=== PATIENT | male | born 1995 | race Caucasian/White ===

== ENCOUNTER 2024-03-08 11:36 | Emergency (ER) | payer OTHER, SELFPAY ==
[2024-03-08 11:45] VITALS: BP 159/76; PULSE 109; RESP 16; TEMP 36.1; O2SAT 99
--- NOTE | 2024-03-08 12:47 | ED.NAVMDI ---
HPI - Nausea/Vomiting/Diarrhea General Chief complaint: Nausea/Vomiting/Diarrhea Stated complaint: Diarrhea/Vomiting Source: patient and RN notes reviewed Mode of arrival: ambulatory Limitations: no limitations History of Present Illness HPI Narrative: 28-year-old male presented complaint of vomiting and diarrhea. Onset last night. Endorses 1 episode of diarrhea today and no emesis. He has been able to tolerate fluids.He missed work today and needs note Related Data Home Medications ?Medication ?Instructions ?Recorded ?Confirmed ?Last Taken ?Type No Home Medications 03/08/24 03/08/24 Unknown History Allergies Allergy/AdvReac Type Severity Reaction Status Date / Time No Known Allergies Allergy Mild Verified 12/16/15 12:26 Review of Systems Review of Systems: CONSTITUTIONAL: Denies body aches, fever, chills ENT: Denies rhinorrhea, congestion CARDIOVASCULAR: Denies chest pain, palpitations, or edema. RESPIRATORY: Denies cough or dyspnea. GASTROINTESTINAL: Endorses nausea, vomiting, diarrhea. Denies abdominal pain, hematochezia, melena, hematemesis GENITOURINARY: Denies dysuria, hematuria, or CVA tenderness. MUSCULOSKELETAL: Denies back pain, joint pain, or myalgia. NEUROLOGIC: Denies headache, numbness, tingling, or weakness. All systems reviewed & are unremarkable except as noted in HPI and below PMFSH Comments At time of signature, I have reviewed and agree with nursing past medical, surgical, social and family history unless otherwise noted. Please see nursing chart for further information. There is no relevant family history pertinent to the presenting complaint Exam Narrative: GENERAL: Well-appearing, and in no acute distress. EYES: EOMI. Conjunctivae normal. ENT: Mucous membranes pink and moist. CHEST: No respiratory distress. Clear to auscultation. HEART: Regular rate and rhythm. No murmur appreciated. Normal peripheral pulses. ABDOMEN: abd soft, nondistended, normal active bowel sounds. Nontender abdomen, No guarding, rebound tenderness, asymmetry EXTREMITIES: Normal range of motion. SKIN: Warm, dry, no rash. Capillary refill normal. Normal skin turgor. NEURO: No focal deficits. Alert and oriented x3. PSYCH: Normal affect. Course Course Emergency Course: Patient is aware of diagnosis, understands and agrees to treatment plan. Anticipatory guidance given. Patient agrees to follow-up as directed and is aware of reasons to seek care at the emergency department. Portions of this record may have been created with voice recognition software Level of Care: Express Care Visit Vital Signs Vital signs: Vital Signs Temperature 97 F L 03/08/24 11:45 Pulse Rate 109 H 03/08/24 11:45 Respiratory Rate 16 03/08/24 11:45 Blood Pressure 159/76 H 03/08/24 11:45 Pulse Oximetry 99 03/08/24 11:45 Oxygen Delivery Room Air 03/08/24 11:45 Temperature 97 F L 03/08/24 11:45 Pulse Rate 109 H 03/08/24 11:45 Respiratory Rate 16 03/08/24 11:45 Blood Pressure 159/76 H 03/08/24 11:45 Pulse Oximetry 99 03/08/24 11:45 Oxygen Delivery Room Air 03/08/24 11:45 MDM - Nausea/Vomiting/Diarrhea MDM Narrative Medical decision making narrative: Discussed physical exam findings. Advised supportive measures and signs/symptoms to go to the ER. Pt is appropriate for outpt treatment and f/u. Differential Diagnosis Differential diagnosis: Likely traveler's diarrhea, food poisoning, gastroenteritis, drug-induced nausea and vomiting and dehydration Discharge Plan Discharge Clinical Impression: Nausea vomiting and diarrhea Patient Disposition: Home, Self-Care Condition: Stable Instructions: Acute Diarrhea (ED) Additional Instructions: Stay hydrated. Take small sips of fluid containing electrolytes frequently. Clear liquids (broth, jello, tea, sprite, pedialyte) Bailey foods (bananas, rice, applesauce, toast, crackers) Avoid fatty, greasy, fried or spicy foods. Limit dairy until symptoms are improved. [id number] Imodium according to package directions for severe diarrhea Recommend probiotic such as align or lactobacillus to help with symptoms. You should go to the hospital if you experience persistent nausea and vomiting that does not resolve and does not allow you to tolerate any food or fluids, fevers, increasing abdominal pain, persistent diarrhea, or for any other concerns. Follow up with primary care provider in 3 days. Patient Language: Turkish Prescriptions: No Action No Home Medications Follow-up/Referrals: PHYSICIAN,GRAIN OILSEED OR PASTURE GROWER [Primary Care Provider] - Stand Alone Forms: Work/School Release IP Time of Disposition: 12:49
== END 2024-03-08 13:00 | disposition home or self-care (01) ==
PROVIDERS: Emergency Provider Nurse Practitioner Family
DX: R11.2 Nausea with vomiting, unspecified (principal); R19.7 Diarrhea, unspecified
CPT/HCPCS: 99202; G0463

== ENCOUNTER 2024-06-21 10:36 | Emergency (ER) | payer OTHER, SELFPAY ==
--- NOTE | ~2024-06-21 | XR_ITS ---
XR finger 4th LT min 2V 06/21/2024 10:55 Indication: Trauma to the left fourth finger Procedure: 4 views left fourth finger Comparison: No prior studies for comparison. Findings: There is a comminuted displaced tuft fracture left fourth distal phalanx. Mild soft tissue swelling. Impression: 1: Comminuted displaced tuft fracture left fourth distal phalanx. Reviewed, dictated and finalized at location A. Impression: 1: Comminuted displaced tuft fracture left fourth distal phalanx.
[2024-06-21 10:40] VITALS: BP 136/90; PULSE 97; RESP 16; TEMP 36.6; O2SAT 98
--- NOTE | 2024-06-21 10:57 | ED.WOUNDLAC ---
HPI - Wound/Laceration General Chief Complaint: Wound/Laceration Stated Complaint: Finger Injury Time Seen by Provider: 06/21/24 10:58 Source: patient, RN notes reviewed and old records reviewed Mode of arrival: ambulatory Limitations: no limitations History of Present Illness HPI narrative: 29-year-old male presents to the [facility] with a crush injury to the left 4th distal finger. Unsure of exact mechanism of injury. Related Data Home Medications ?Medication ?Instructions ?Recorded ?Confirmed ?Last Taken ?Type No Home Medications 03/08/24 03/08/24 Unknown History Allergies Allergy/AdvReac Type Severity Reaction Status Date / Time No Known Allergies Allergy Mild Verified 12/16/15 12:26 Review of Systems Review of Systems: All systems reviewed & are unremarkable except as noted in HPI and below Constitutional: Constitutional: Reports no additional constitutional complaints ENT: Reports system reviewed and no additional complaints, except as documented Cardiovascular: Cardiovascular: Reports no additional cardiovascular complaints, Denies chest pain and Denies dyspnea Respiratory: Respiratory: Reports no additional respiratory complaints, Denies chest congestion, Denies cough and Denies dyspnea Musculoskeletal: Musculoskeletal: Reports as per HPI Integumentary/Breasts: Skin/Breast: Reports as per HPI PMFSH Comments At the time of my signature, I reviewed and agree with the nursing past medical, surgical, social, and family history. There is no relevant family history pertinent to the patient complaint. Exam Const: General: cooperative, healthy appearing, comfortable, no acute distress, well developed, alert and well nourished Nutritional Appearance: well nourished Orientation/consciousness: patient oriented x3 Limitations: no limitations HENMT: Head: normal to inspection Eyes: General: appearance normal, both eyes and all related structures Alignment and Position: alignment normal Neck: Neck: normal visual inspection, full ROM, no lymphadenopathy and no meningeal signs Chest: Chest palpation & inspection: normal inspection of the chest Resp: Effort & Inspection: normal respiratory effort and able to speak in complete sentences Cardio: Rate: regular rate Skin: General skin exam: normal color and no rashes or lesions noted Wounds: wounds noted (Laceration, nail removed left 4th finger) Other: Concern for partial amputation of the distal finger nail bed involvement. Neuro: General: patient oriented x3, gait normal, moves all extremities and no meningeal signs Cognition (Neuro): normal cognition Speech: normal speech Gait exam (Neuro): Normal gait present Extrem: General: normal to inspection, full ROM, capillary refill normal and normal gait Right upper extremity: Extremity exam: right hand tenderness of the 4th digit at the distal phalanx, swelling of the 4th digit at the distal phalanx and laceration (Left 4th finger distal) Psych: Appearance: grossly normal and well kempt Mental Status: mental status grossly normal Speech and movement: Normal speech and movement present and Clear speech present Affect: normal affect Attitude: cooperative Course Course Level of Care: Express Care Visit Vital Signs Vital signs: Vital Signs Temperature 97.8 F 06/21/24 10:40 Pulse Rate 97 06/21/24 10:40 Respiratory Rate 16 06/21/24 10:40 Blood Pressure 136/90 06/21/24 10:40 Pulse Oximetry 98 06/21/24 10:40 Oxygen Delivery Room Air 06/21/24 10:40 Temperature 97.8 F 06/21/24 10:40 Pulse Rate 97 06/21/24 10:40 Respiratory Rate 16 06/21/24 10:40 Blood Pressure 136/90 06/21/24 10:40 Pulse Oximetry 98 06/21/24 10:40 Oxygen Delivery Room Air 06/21/24 10:40 Reviewed Transfer Transfered to: [facility] (Per patient request) Transportation: Other (POV per patient request) Transfer rationale: Concern for open fracture, partial amputation of the finger sending for higher level care Accepting physician: Spoke with Nela LAUGHLIN, [facility]. MDM - Wound/Laceration MDM Narrative Medical decision making narrative: Patient with concerns of a partial amputation, open fracture to the 4th finger hand. Sending for higher level of care and further evaluation Transfer instructions reviewed with patient go directly to the ER. Do not eat or drink until cleared by your provider All questions have been answered, and the patient deny any further questions. Some parts of this dictation were generated by voice recognition software and may contain typographical and/or grammatical inaccuracies. Differential Diagnosis Differential diagnosis: Likely laceration, abscess, abrasion and avulsion of skin Imaging Data Radiologist's impression: XR finger 4th LT min 2V 06/21/2024 10:55 Indication: Trauma to the left fourth finger Procedure: 4 views left fourth finger Comparison: No prior studies for comparison. Findings: There is a comminuted displaced tuft fracture left fourth distal phalanx. Mild soft tissue swelling. Impression: 1: Comminuted displaced tuft fracture left fourth distal phalanx. Critical Care Time Critical Care Time Critical Care Time: No Discharge Plan Discharge Clinical Impression: Crush injury to finger Qualifiers: Encounter type: initial encounter Qualified Code(s): S67.10XA - Crushing injury of unspecified finger(s), initial encounter Patient Disposition: Acute Care Hospital Condition: Stable Patient Language: Malay Prescriptions: No Action No Home Medications Follow-up/Referrals: PHYSICIAN,DATA CENTER MANAGER [Primary Care Provider] -
== END 2024-06-21 11:36 | disposition short-term general hospital (02) ==
PROVIDERS: Emergency Provider Nurse Practitioner
DX: S67.195A Crushing injury of left ring finger, initial encounter (principal); X58.XXXA Exposure to other specified factors, initial encounter; S62.635A Displaced fracture of distal phalanx of left ring finger, initial encounter for closed fracture
CPT/HCPCS: 73140; 99213; G0463

== ENCOUNTER 2024-08-26 10:49 | Emergency (ER) | payer OTHER, SELFPAY ==
[2024-08-26 10:56] VITALS: BP 146/85; PULSE 87; RESP 20; TEMP 36.9; O2SAT 100
--- NOTE | 2024-08-26 11:09 | ED_ITS ---
HPI - Nausea/Vomiting/Diarrhea General Chief complaint: Nausea/Vomiting/Diarrhea Stated complaint: Diarrhea,Vomiting / Work Note Time Seen by Provider: 08/26/24 11:10 Source: patient Mode of arrival: ambulatory Limitations: no limitations History of Present Illness HPI Narrative: 29-year-old male presents with complaint nausea, vomiting and diarrhea for 2 days. No abdominal pain. Afebrile. States symptoms are improving. Here for a work note. All systems reviewed and negative except as noted. Related Data Home Medications ?Medication ?Instructions ?Recorded ?Confirmed ?Last Taken ?Type No Home Medications 03/08/24 03/08/24 Unknown History Allergies Allergy/AdvReac Type Severity Reaction Status Date / Time No Known Allergies Allergy Mild Verified 08/26/24 11:02 Review of Systems Review of Systems: CONSTITUTIONAL: Denies fever, chills, or sweats. EYES: Denies visual changes, redness, or discharge. ENT: Denies rhinorrhea, congestion, sore throat, or otalgia. CARDIOVASCULAR: Denies chest pain, palpitations, or edema. RESPIRATORY: Denies cough or dyspnea. GASTROINTESTINAL: Denies abdominal pain . Reports nausea, vomiting, or diarrhea. GENITOURINARY: Denies dysuria or hematuria. SKIN: Denies rash or itching. MUSCULOSKELETAL: Denies back pain, joint pain, or myalgia. NEUROLOGIC: Denies headache, numbness, or weakness. PSYCHIATRIC: Denies anxiety or depression. All other systems reviewed are negative, except as documented in HPI. PMFSH Comments At time of signature, agree with nursing past medical, surgical, social and family history. There is no relevant family history pertinent to the presenting complaint. Exam Narrative: GENERAL: This is a well-nourished, well-developed patient, in no apparent distress. HEAD: normocephalic, atraumatic. EYES: PERRL. Sclera clear/white. Vision is grossly intact. EARS: External ears normal NOSE: External nose normal NECK: Neck supple, non-tender without lymphadenopathy, masses or thyromegaly. CARDIOVASCULAR: Regular rate and rhythm without murmurs, gallops, or rubs. RESPIRATORY: Clear to auscultation. Breath sounds equal bilaterally. No wheezes, rales, or rhonchi. GASTROINTESTINAL: Abdomen soft, non-tender, nondistended. Bowel sounds are active. No hepato-splenomegaly, or palpable masses. No guarding. SKIN: warm, Dry, intact with no suspicious lesions or rash, good texture and turgor. NEURO: awake, alert, and oriented to person, place and time. There were no obvious focal neurologic abnormalities. EXTREMITIES: No joint tenderness, effusion, or edema noted. Course Course Level of Care: Express Care Visit Vital Signs Vital signs: Vital Signs Temperature 36.9 C 08/26/24 10:56 Pulse Rate 87 08/26/24 10:56 Respiratory Rate 20 08/26/24 10:56 Blood Pressure 146/85 H 08/26/24 10:56 Pulse Oximetry 100 08/26/24 10:56 Oxygen Delivery Room Air 08/26/24 10:56 Temperature 36.9 C 08/26/24 10:56 Pulse Rate 87 08/26/24 10:56 Respiratory Rate 20 08/26/24 10:56 Blood Pressure 146/85 H 08/26/24 10:56 Pulse Oximetry 100 08/26/24 10:56 Oxygen Delivery Room Air 08/26/24 10:56 reviewed MDM - Nausea/Vomiting/Diarrhea MDM Narrative Medical decision making narrative: patient reports symptoms are improving. Ate some toast prior to arrival unable to keep down water. Here for work no. No abdominal tenderness on exam, bowel sounds normal. Well-appearing, nontoxic. Differential Diagnosis Differential diagnosis: Likely gastroenteritis Discharge Plan Discharge Clinical Impression: Nausea vomiting and diarrhea Patient Disposition: Home Condition: Stable Instructions: Acute Nausea and Vomiting (DC) Additional Instructions: Drink plenty of water and rest. Take Tylenol or ibuprofen as needed for pain. Follow-up with your doctor if symptoms are not improving. Patient Language: Italian Prescriptions: No Action No Home Medications Follow-up/Referrals: PHYSICIAN,SOLAR PROJECT ENGINEER [Primary Care Provider] - Stand Alone Forms: Work/School Release IP Time of Disposition: 11:16
--- OUTSIDE RECORDS SUMMARY | 2024-08-26 11:53 | XMS_ITS | Referral Summary ---
Author Organization [facility] al Address [address] [place] [address] Care Team Providers Care Conveyor Tender Name Role Phone No, Physician Primary Care Provider [phone] Encounters Date Type Department Care Team Description 07/25/2024 3:45 PM CDT Office Visit [facility] Surgery [facility] 6th [place] [address] Marina Smith NP Open nondisplaced fracture of distal phalanx of left ring finger with routine healing, subsequent encounter (Primary Dx) 07/03/2024 Plan of Care Documentation [facility] Occupational Therapy [address] [place] [address] 6th [place] [address] 07/03/2024 3:05 PM CDT Therapy [facility] Occupational Therapy [address] [place] [address] 6th [place] [address] Emiliano Baker OT Open nondisplaced fracture of distal phalanx of left ring finger with routine healing, subsequent encounter (Primary Dx) 07/03/2024 2:00 PM CDT Office Visit [facility] Surgery [address] [place] [address] 6th [place] [address] Marina Smith NP Open nondisplaced fracture of distal phalanx of left ring finger with routine healing, subsequent encounter 07/01/2024 Telephone [facility] Surgery [address] [facility] 6th [place] [address] Miya Turner Scheduling Appointments 06/21/2024 1:28 PM CDT - 06/21/2024 5:50 PM CDT Emergency [facility] Emergency Department [address] [place] [address] Anton Cochran MD Poirier, Robert F. Jr., MD Open nondisplaced fracture of distal phalanx of left ring finger, initial encounter (Primary Dx); Injury of nail bed of finger of left hand, initial encounter Discharge Disposition: Discharge to home or self care from Last 3 Months Allergies No known active allergies Medications ibuprofen (ADVIL,MOTRIN) 600 mg tablet Take 1 tablet (600 mg total) by mouth 4 (four) times a day as needed for pain Take with food. 30 tablet 1 06/21/2024 Active Active Problems No known active problems Immunizations Immunization Administration Dates Next Due Tdap 06/21/2024 Social History Tobacco Use Types Packs/Day Years Used Date Smoking Tobacco: Never Assessed Personal Safety Answer Date Recorded Have you ever been in or are you currently in a harmful physical or emotional relationship or is someone making you feel afraid or unsafe? Denies 06/21/2024 Sex and Gender Information Value Date Recorded Sex Assigned at Not on file Legal Sex Male 8:17 AM UPSETTER SETTER UP Gender Identity Not on file Sexual Orientation Not on file Last Filed Vital Signs Vital Sign Reading Time Taken Comments Blood Pressure 158/80 06/21/2024 5:50 PM CDT Pulse 75 06/21/2024 5:50 PM CDT Temperature - - Respiratory Rate 16 06/21/2024 5:50 PM CDT Oxygen Saturation 98% 06/21/2024 5:50 PM CDT Inhaled Oxygen Concentration - - Weight 97.5 kg (215 lb) 06/21/2024 1:14 PM CDT Height 177.8 cm (5' 10) 06/21/2024 1:14 PM CDT Body Mass Index 30.85 06/21/2024 1:14 PM CDT Plan of Treatment Not on file Procedures Procedure Name Priority Date/Time Associated Diagnosis Comments ED ORTHOPEDIC INJURY TREATMENT - UPPER EXTREMITY Routine 06/26/2024 5:00 PM CDT XR FINGER LEFT 2 OR MORE VIEWS ED 06/21/2024 1:29 PM CDT from Last 3 Months Results * Orthopedic Injury Reduction/Treatment - Upper Extremity (06/26/2024 5:00 PM CDT) Narrative Sarabjit Florence Jr., MD - 06/26/2024 5:00 PM CDT Sarabjit Florence Jr., MD 06/26/2024 5:23 PM Orthopedic Injury Reduction/Treatment - Upper Extremity Date/Time: 06/26/2024 5:00 PM Performed by: Sarabjit Florence Jr., MD Authorized by: Sarabjit Florence Jr., MD RN Notified of Procedure: yes Informed consent: Risks, benefits, alternatives discussed Patient's stated name/ matches armband: Yes Allergies confirmed: yes Imaging: Pertinent imaging reviewed, correctly oriented and match to patient identifiers Supplies, devices and special equipment are available: yes Site/side marked: yes Immediately prior to the procedure a time out was called: a verbal verification by the procedure participants confirmed correct patient identity, correct site/side marked and visible (if applicable); agreement on procedure to be done; and correct patient positioning Location: Finger Finger location: L ring finger Pre-procedure imaging: X-ray Imaging findings: fracture present Distal perfusion: normal Sedation used: no Anesthesia method: Nerve block Block location: Left 4th finger Block needle gauge: 27 G Block anesthetic: Lidocaine 1% WITH epi Block technique: Digital block Block injection procedure: Anatomic landmarks identified, negative aspiration for blood, incremental injection, anatomic landmarks palpated and introduced needle Block outcome: Anesthesia achieved Manipulation performed: no Immobilization: Splint Splint type: Static finger Supplies used: Aluminum splint Neurological function: normal Distal perfusion: normal Range of motion: unchanged Patient tolerance of procedure: Tolerated well, no immediate complications All guidewires, needles, sponges or other items are accounted for: yes us Sarabjit Florence Jr., MD IN CL[facility] Final Result * XR Finger Left 2 or More Views (06/21/2024 1:29 PM CDT) Anatomical Region Laterality Modality Upper Extremities, Hand, Fingers Left Computed Radiography 06/21/2024 1:42 PM CDT Impressions 06/21/2024 1:42 PM CDT There is a comminuted left ring finger tuft fracture of the distal phalanx with associated soft tissue swelling. The remainder of the left hand is normal. Electronically signed by: Tristian Haji M.D. Narrative 06/21/2024 1:42 PM CDT EXAMINATION: XR FINGER LEFT 2 OR MORE VIEWS HISTORY: Trauma COMPARISON: None. Procedure Note Tristian Haji MD - 06/21/2024 EXAMINATION: XR FINGER LEFT 2 OR MORE VIEWS HISTORY: Trauma COMPARISON: None. IMPRESSION: There is a comminuted left ring finger tuft fracture of the distal phalanx with associated soft tissue swelling. The remainder of the left hand is normal. Electronically signed by: Tristian Haji M.D. Anton Cochran MD IMG XR PROCEDURES Final Result from Last 3 Months Insurance [facility] Care Teams Conveyor Tender Relationship Specialty Start Date End Date No, Physician PCP - General 06/21/24
--- OUTSIDE RECORDS SUMMARY | 2024-08-26 11:53 | XMS_ITS | Clinical Summary ---
Author Organization [facility] Address [address] [place] [address] Care Team Providers Care Walnut Dehydrator Operator Name Role Phone No, Physician Primary Care Provider [phone] Allergies No known active allergies Medications ibuprofen (ADVIL,MOTRIN) 600 mg tablet Take 1 tablet (600 mg total) by mouth 4 (four) times a day as needed for pain Take with food. 30 tablet 1 06/21/2024 Active Active Problems No known active problems Encounters Date Type Department Care Team Description 07/25/2024 3:45 PM CDT Office Visit [facility] Surgery [address] [place] [address] 6[address] [place] [address] Marina Smith NP Open nondisplaced fracture of distal phalanx of left ring finger with routine healing, subsequent encounter (Primary Dx) 07/03/2024 3:05 PM CDT Therapy [facility] Occupational Therapy [address] [place] [address] 6th [place] [address] Emiliano Baker OT Open nondisplaced fracture of distal phalanx of left ring finger with routine healing, subsequent encounter (Primary Dx) 07/03/2024 2:00 PM CDT Office Visit [facility] Surgery [address] [facility] [address] [facility] 6th [place] [address] Marina Smtih NP Open nondisplaced fracture of distal phalanx of left ring finger with routine healing, subsequent encounter 07/03/2024 Plan of Care Documentation [facility] Occupational Therapy [address] [facility] 6th [place] [address] [place] [address] 07/01/2024 Telephone [facility] Surgery [address] [facility] 6th [place] [address] [place] [address] Miya Turner Scheduling Appointments 06/21/2024 1:28 PM CDT - 06/21/2024 5:50 PM CDT Emergency [facility] Emergency Department [address] [facility] [place] [address] Anton Cochran MD Poirier, Robert F. Jr., MD Open nondisplaced fracture of distal phalanx of left ring finger, initial encounter (Primary Dx); Injury of nail bed of finger of left hand, initial encounter Discharge Disposition: Discharge to home or self care from Last 3 Months Immunizations Immunization Administration Dates Next Due Tdap [...] on file Legal Sex Male 8:17 AM CLEARING HAND Gender Identity Not on file Sexual Orientation Not on file Obstetrics History Last Filed Vital Signs Vital Sign Reading [...] 06/21/2024 1:14 PM CDT Plan of Treatment Health Maintenance Due Date Last Done Comments Depression Screening 1995 Hepatitis C Screening 1995 Varicella Vaccines (1 of 2 - 13+ 2-dose series) 2008 Hepatitis B Screening 2013 Regular Well Visit/Exam 18-64 2013 Influenza Vaccine (Season Ended) 2024 DTaP/Tdap/Td Vaccine (2 - Td or Tdap) 06/21/2034 06/21/2024 HPV Vaccines Aged Out No longer eligi ble based on patient's age to complete this topic Pneumococcal vaccine <65 Aged Out No longer eligible based on patient's age to complete this topic Procedures Procedure Name Priority Date/Time Associated Diagnosis [...] or other items are accounted for: yes Sarabjit Florence Jr., MD IN CLINIC/BEDSIDE SANDRA [...] Final Result from Last 3 Months Insurance [facility] CHOICE PLUS [facility] CHOICE PLUS [place] [id number] Care Teams Walnut Dehydrator Operator Relationship Specialty Start Date End Date No, Physician PCP - General 06/21/24
== END 2024-08-26 11:19 | disposition home or self-care (01) ==
PROVIDERS: Emergency Provider Nurse Practitioner Family
DX: R11.2 Nausea with vomiting, unspecified (principal); R19.7 Diarrhea, unspecified
CPT/HCPCS: 99211; G0463

== ENCOUNTER 2024-11-26 09:05 | Emergency (ER) | payer OTHER, SELFPAY ==
[2024-11-26 09:18] VITALS: BP 153/86; PULSE 93; RESP 14; TEMP 36.6; O2SAT 100
--- NOTE | 2024-11-26 10:06 | ED.GENADULT ---
HPI - General Adult General Chief complaint: Nausea/Vomiting/Diarrhea Stated complaint: headache/nausea/diarrhea Time Seen by Provider: 11/26/24 09:50 Source: patient, RN notes reviewed and old records reviewed Mode of arrival: ambulatory Limitations: no limitations History of Present Illness HPI narrative: 29 year old male who presents to [facility] care with complaints of having headache which started 2 days ago and has had episodes of diarrhea since yesterday. Patient reports that he has had 2 episodes of diarrhea this morning. patient reports that he is feeling better but didn't think he could go to work today around loud noises. 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 Patient reports no acute abdominal pain states minimal nausea, no vomiting, he has taken Tylenol and also Immodium for his symptoms, denies any fevers chills or sweats. MD complaint: headache, diarrhea Onset (ago): day(s) (3) Severity scale (1-10): 4 Quality: aching Treatments prior to arrival: other (Tylenol, Immodium) Related Data Home Medications ?Medication ?Instructions ?Recorded ?Confirmed ?Last Taken ?Type No Home Medications 03/08/24 11/26/24 Unknown History Allergies Allergy/AdvReac Type Severity Reaction Status Date / Time No Known Allergies Allergy Mild Verified 11/26/24 10:04 Review of Systems Review of Systems: CONSTITUTIONAL: Denies fever, chills, or sweats. EYES: Denies visual changes, redness, or discharge. ENT: Denies rhinorrhea, congestion, sore throat, or otalgia. CARDIOVASCULAR: Denies chest pain, palpitations, or edema. RESPIRATORY: Denies cough or dyspnea. GASTROINTESTINAL: Denies any acute abdominal pain,minimal nausea,no vomiting, positive for diarrhea. GENITOURINARY: Denies dysuria or hematuria. SKIN: Denies rash or itching. MUSCULOSKELETAL: Denies back pain, joint pain, or myalgia. NEUROLOGIC: Reports temporal headache,no numbness, or weakness. PSYCHIATRIC: Denies anxiety or depression. All systems reviewed & are unremarkable except as noted in HPI and below PMFSH Social History Social History Smoking status: Current every day smoker Tobacco type: cigarettes Alcohol intake: current Alcohol use details: social last alcohol on Monday Substance use type: does not use Living arrangements: with family Gender identity (if verbalized by the patient): Male Comments At time of signature, agree with nursing past medical, surgical, social and family history. There is no relevant family history pertinent to the presenting complaint Exam Narrative: GENERAL: Well-appearing, well-nourished, and in no acute distress. HEAD: Normocephalic, atraumatic. EYES: PERRLA and EOMI.no nystagmus ENT: Nares clear, no rhinorrhea or epistaxis. Mucous membranes moist. NECK: Supple.no lymphadenopathy CHEST: Clear to auscultation. No respiratory distress.SAO2 100% on room air HEART: Regular rate and rhythm. No murmur heard. Normal peripheral pulses. ABDOMEN: Soft, nontender to palpation, No McBurney point tenderness, nondistended, normal active bowel sounds.reports episodes of diarrhea EXTREMITIES: Normal range of motion. No edema. SKIN: Warm, dry, no rash. NEURO: No focal deficits. Alert and oriented x3. reports temporal headache Course Course Emergency Course: Patient is aware of diagnosis, understands and agrees to treatment plan.? Anticipatory guidance given.? Patient agrees to follow-up as directed and is aware of reasons to seek care at the emergency department. Portions of this record may have been created with voice recognition software Level of Care: Express Care Visit Vital Signs Vital signs: Vital Signs Temperature 36.6 C 11/26/24 09:18 Pulse Rate 93 11/26/24 09:18 Respiratory Rate 14 11/26/24 09:18 Blood Pressure 153/86 H 11/26/24 09:18 Pulse Oximetry 100 11/26/24 09:18 Oxygen Delivery Room Air 11/26/24 09:18 Temperature 36.6 C 11/26/24 09:18 Pulse Rate 93 11/26/24 09:18 Respiratory Rate 14 11/26/24 09:18 Blood Pressure 153/86 H 11/26/24 09:18 Pulse Oximetry 100 11/26/24 09:18 Oxygen Delivery Room Air 11/26/24 09:18 Reviewed Medical Decision Making MDM Narrative Medical decision making narrative: Exam findings and imaging show no acute concerns or changes; patient is non-toxic appearing and is in no distress.? Patient is appropriate for outpatient treatment and follow-up Differential Diagnosis Differential Diagnosis: headache pain, diarrhea, gastritis, gastroenteritis, viral syndrome Medical Records Medical records reviewed: Yes I reviewed the external patient's medical records. Vital Signs Vital Signs: Vital Signs Temperature 36.6 C 11/26/24 09:18 Pulse Rate 93 11/26/24 09:18 Respiratory Rate 14 11/26/24 09:18 Blood Pressure 153/86 H 11/26/24 09:18 Pulse Oximetry 100 11/26/24 09:18 Oxygen Delivery Room Air 11/26/24 09:18 Temperature 36.6 C 11/26/24 09:18 Pulse Rate 93 11/26/24 09:18 Respiratory Rate 14 11/26/24 09:18 Blood Pressure 153/86 H 11/26/24 09:18 Pulse Oximetry 100 11/26/24 09:18 Oxygen Delivery Room Air 11/26/24 09:18 reviewed Critical Care Time Critical Care Time Critical Care Time: No Discharge Plan Discharge Clinical Impression: Headache Qualifiers: Headache type: unspecified Headache chronicity pattern: acute headache Intractability: not intractable Qualified Code(s): R51.9 - Headache, unspecified Diarrhea Qualifiers: Diarrhea type: unspecified type Qualified Code(s): R19.7 - Diarrhea, unspecified Patient Disposition: Home Condition: Stable Instructions: Analgesic/Decongestant (By mouth), Acute Headache (ED), Acute Diarrhea (ED) Additional Instructions: Clear liquids for the next 8-10 hours, then advance to a bland diet as tolerated A bland diet can consist of--BRAT diet which is bananas, rice, applesauce, and toast Avoid fried, greasy, fatty, fried foods Avoid caffeine, nicotine, and alcohol Return to your regular diet in the next 3-4 days Sometimes ibuprofen/Aleve can cause increased stomach upset [id number] Imodium if develop diarrhea Follow-up with her PCP if continued problems or uncontrolled pain Take Tylenol for your headache and also antihistamine such as Zyrtec or Claritin If your symptoms persist, change or worsen significantly before you can contact your personal physician then please, without delay, go to the emergency department for further evaluation. Follow-up with PCP in 7-10 days or sooner if needed Follow up with PCP soon in regards to your blood pressure which is elevated above threshold for referral. Blood pressure above 120/80 may indicate pre-hypertension. 153/86 Patient Language: Mosotho Prescriptions: No Action No Home Medications Follow-up/Referrals: PHYSICIAN,DIRECTOR CORPORATE COMMUNICATIONS [Primary Care Provider, Internal Medicine] Stand Alone Forms: Work/School Release IP Time of Disposition: 10:17 Quality [place] Coma Scale Eyes: Open Verbal: Oriented and Alert Motor: Follows Commands Denia Coma Total Score: 15
--- OUTSIDE RECORDS SUMMARY | 2024-11-26 10:14 | XMS_ITS | Clinical Summary ---
Author Organization 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
== END 2024-11-26 10:20 | disposition home or self-care (01) ==
PROVIDERS: Emergency Provider Registered Nurse
DX: R51.9 Headache, unspecified (principal); R19.7 Diarrhea, unspecified; F17.210 Nicotine dependence, cigarettes, uncomplicated
CPT/HCPCS: 99211; G0463

== ENCOUNTER 2025-01-03 09:10 | Emergency (ER) | payer OTHER, SELFPAY ==
--- OUTSIDE RECORDS SUMMARY | 2025-01-03 09:19 | XMS_ITS | Clinical Summary ---
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
[2025-01-03 09:20] VITALS: BP 145/73; PULSE 95; RESP 16; TEMP 36.5; O2SAT 99
--- NOTE | 2025-01-03 09:30 | ED.NAVMDI ---
HPI - Nausea/Vomiting/Diarrhea General Chief complaint: Nausea/Vomiting/Diarrhea Stated complaint: Vomiting Time Seen by Provider: 01/03/25 09:30 Source: patient Mode of arrival: ambulatory Limitations: no limitations History of Present Illness HPI Narrative: 29-year-old male presents with complaint of nausea and vomiting starting yesterday morning. Ate breakfast and went into work. Started vomiting around 9:00 a.m.. A left work early. Continues to feel nauseated this morning but no Vomiting. Is able to keep down water. Needs work note. No abdominal pain. All systems reviewed and negative except as noted above. Related Data Allergies Allergy/AdvReac Type Severity Reaction Status Date / Time No Known Allergies Allergy Mild Verified 01/03/25 09:29 [facility] Social History Social History Smoking status: Current every day smoker Tobacco type: cigarettes Alcohol intake: current Alcohol use details: social last alcohol on Monday Substance use type: does not use Living arrangements: with family Gender identity (if verbalized by the patient): Male Comments At time of signature, agree with nursing past medical, surgical, social and family history. There is no relevant family history pertinent to the presenting complaint. Exam Narrative: GENERAL: This is a well-nourished, well-developed patient, in no apparent distress. HEAD: normocephalic, atraumatic. EYES: PERRL. Sclera clear/white. Vision is grossly intact. EARS: External ears normal, auditory canals clear and without drainage, TMs normal without perforation. Hearing grossly intact. NOSE: External nose normal with no obvious nasal discharge, nares without redness, no rhinorrhea. THROAT: Mucous membranes moist, posterior pharynx clear. NECK: Neck supple, non-tender without lymphadenopathy, masses or thyromegaly. CARDIOVASCULAR: Regular rate and rhythm without murmurs, gallops, or rubs. RESPIRATORY: Clear to auscultation. Breath sounds equal bilaterally. No wheezes, rales, or rhonchi. GASTROINTESTINAL: Abdomen soft, non-tender, nondistended. Bowel sounds are active. No hepato-splenomegaly, or palpable masses. No guarding. SKIN: warm, Dry, intact with no suspicious lesions or rash, good texture and turgor. NEURO: awake, alert, and oriented to person, place and time. There were no obvious focal neurologic abnormalities. EXTREMITIES: No joint tenderness, effusion, or edema noted. Course Course Level of Care: Express Care Visit Vital Signs Vital signs: Vital Signs Temperature 36.5 C 01/03/25 09:20 Pulse Rate 95 01/03/25 09:20 Respiratory Rate 16 01/03/25 09:20 Blood Pressure 145/73 H 01/03/25 09:20 Pulse Oximetry 99 01/03/25 09:20 Oxygen Delivery Room Air 01/03/25 09:20 Temperature 36.5 C 01/03/25 09:20 Pulse Rate 95 01/03/25 09:20 Respiratory Rate 16 01/03/25 09:20 Blood Pressure 145/73 H 01/03/25 09:20 Pulse Oximetry 99 01/03/25 09:20 Oxygen Delivery Room Air 01/03/25 09:20 Reviewed MDM - Nausea/Vomiting/Diarrhea MDM Narrative Medical decision making narrative: patient is well-appearing, nontoxic. No abdominal tenderness on exam. Will prescribe Zofran for nausea and vomiting. Recommend rest and hydration. Differential Diagnosis Differential diagnosis: Likely food poisoning, gastroenteritis and dehydration Discharge Plan Discharge Clinical Impression: Nausea & vomiting Patient Disposition: Home Condition: Stable Instructions: Acute Nausea and Vomiting (ED) Additional Instructions: Take medication as prescribed to treat nausea and vomiting. drink at least 64 oz water a day. See your doctor if symptoms are not improving. If you have severe abdominal pain or unable to keep down water and concerned for dehydration go to the ER. Patient Language: Ukrainian Prescriptions: New ondansetron 4 mg tablet,disintegrating 4 mg PO Q8H PRN (Reason: nausea and vomiting) Qty: 12 0RF Follow-up/Referrals: PHYSICIAN,PARTS REPRESENTATIVE [Primary Care Provider, Internal Medicine] Stand Alone Forms: Work/School Release IP Time of Disposition: 09:35
== END 2025-01-03 09:42 | disposition home or self-care (01) ==
PROVIDERS: Emergency Provider Nurse Practitioner Family
DX: R11.2 Nausea with vomiting, unspecified (principal); F17.210 Nicotine dependence, cigarettes, uncomplicated
CPT/HCPCS: 99213; G0463